=== PATIENT | female | born 1985 | race Caucasian/White ===

== ENCOUNTER 2021-04-19 11:27 | Emergency (ER) | payer OTHER ==
[~2021-04-19] VITALS: Ht 154.9 cm; Wt 59.9 kg
[~2021-04-19 11:27] MED LIST: KEPPRA500 MG PO
[2021-04-19] MEDS ORDERED: METHOCARBAMOL500 M1 PO (14:00)
[2021-04-19] MEDS ORDERED: IBUPROFEN600 MG PO (14:00)
== END 2021-04-19 14:14 | disposition home or self-care (01) ==
LOC: ED 11:27
DX: S40.012A Contusion of left shoulder, initial encounter (principal); S00.93XA Contusion of unspecified part of head, initial encounter; V47.5XXA Car driver injured in collision with fixed or stationary object in traffic accident, initial encounter; Y93.89 Activity, other specified; Y92.89 Other specified places as the place of occurrence of the external cause; Y99.8 Other external cause status